=== PATIENT | female | born 1995 | race Two or more races ===

== ENCOUNTER 2018-12-01 06:36 | Emergency (ER) | payer SELFPAY ==
[~2018-12-01] VITALS: Ht 157.5 cm; Wt 54.4 kg
[2018-12-01] MEDS ORDERED: SODIUM CHLORIDE 0.9% 1,000 ML IVB ONE (06:57)
[2018-12-01 07:42] LABS: Basophils # (auto) 0.1 uL; Eosinophils # (auto) 0 uL; Eosinophils % (auto) 0.5 % (0.0-7.0); Hematocrit 42.7 % (36.0-46.0); Hemoglobin 14.5 g/dL (12.2-16.2); Lymphocytes # (auto) 1.5 uL; Lymphocytes % (auto) 26.3 % (10.0-50.0); Mean Corpuscular Hemoglobin 32.8 pg (28.0-32.0); Mean Corpuscular Volume 96.6 fL (80.0-100.0); Monocytes # (auto) 0.4 uL; Monocytes % (auto) 6.8 % (0.0-12.0); Neutrophils # (auto) 3.6 uL; Neutrophils % (auto) 65.4 % (37.0-80.0); Nucleated Red Blood Cells % 0.2 %; Platelet Count (auto) 246 10^3/uL (140-450); Red Blood Cells 4.42 10^6/uL (4.0-5.20); Red Cell Distribution Width 13.7 % (11.8-14.3); White Blood Cell 5.6 10^3/uL (4.4-10.8)
[2018-12-01 07:57] LABS: Albumin 4.4 g/dL (3.4-5.0); BUN/Creatinine Ratio 9.4; Calcium 8.7 mg/dL (8.5-10.1); Potassium 3.7 mmol/L (3.5-5.1)
[2018-12-01 08:00] LABS: Bilirubin, Total 0.3 mg/dL (0.2-1.0); Total Protein 8.2 g/dL (6.4-8.2)
== END 2018-12-01 08:55 ==
LOC: ER 06:36 → EDBD 06:36 → ER 08:55
DX: F10.920 Alcohol use, unspecified with intoxication, uncomplicated (principal); Y90.8 Blood alcohol level of 240 mg/100 ml or more
CPT/HCPCS: 36415; 80053; 80320; 85025; 94761

== ENCOUNTER 2020-11-28 05:47 | Emergency (ER) | payer MEDICAID ==
[~2020-11-28] VITALS: Ht 157.5 cm; Wt 54.4 kg
[2020-11-28] MEDS ORDERED: IBUPROFEN 800 MG TAB PO ONE (08:45)
[2020-11-28 09:23] VITALS: BP 100/69
== END 2020-11-28 09:58 | disposition home or self-care (01) ==
LOC: ER 05:47 → EEVIPCON 05:47 → ER 09:58
DX: S00.83XA Contusion of other part of head, initial encounter (principal); S70.12XA Contusion of left thigh, initial encounter; S30.0XXA Contusion of lower back and pelvis, initial encounter; M79.10 Myalgia, unspecified site; Y04.2XXA Assault by strike against or bumped into by another person, initial encounter; Y93.89 Activity, other specified; Y92.89 Other specified places as the place of occurrence of the external cause; Y99.8 Other external cause status
CPT/HCPCS: 70450; 71250; 72125; 73060; 73090; 74176; 81025